=== PATIENT | female | born 1990 ===

== ENCOUNTER 2016-11-01 20:24 | Emergency (ER) | payer SELFPAY ==
[~2016-11-01] VITALS: Ht 162.6 cm; Wt 84.6 kg
[2016-11-01 20:28] VITALS: BP 106/77; PULSE 89; RESP 16; TEMP 97.9; O2SAT 99
--- NOTE | 2016-11-01 20:42 | PD ---
HPI Chief Complaint: ENT Complaint Time Seen by Provider: 20:30 Travel History International Travel<30 days: No Contact w/Intl Traveler<30days: No Traveled to known affect area: No History of Present Illness HPI 26-year-old female presents to the emergency room for evaluation of sore throat , headache, and congestion that started last night. Patient states her sore throat started yesterday morning and got better through the day but worsening and when she woke up this morning. Pain is 5/10. She has been taking ibuprofen for symptoms. She has associated mild headache and runny nose. Denies fever, chills, nausea, and vomiting. She is not on any medications. History Past Medical Histgory Medical History: Denies Significant Hx Tetanus Vaccination: > 5 Years LMP: NOW Past Surgical History Surgical History: No Previous Surgery Social History Alcohol Use: Yes (OCC) Tobacco Use: Yes (1/2) Allergies-Medications (Allergen,Severity, Reaction): Coded Allergies: No Known Allergies (Unverified , 11/01/16) Reported Meds & Prescriptions Reported Meds & Active Scripts Active No Active Prescriptions or Reported Medications Review of Systems Except as stated in HPI: all other systems reviewed are Neg Physical Exam Narrative GENERAL: Well-nourished, well-developed female in no acute distress. Afebrile. Ambulatory. SKIN: Focused skin assessment warm/dry. HEAD: Normocephalic. EYES: No scleral icterus. No injection or drainage. ENT: Mucosa pink and moist. Very mild erythema of the pharynx. No edema or exudates. No uvular edema. No uvular, palatal, or tonsillar deviation. Airway patent. Nasal turbinates appear normal without nasal blood, purulent drainage or septal hematoma. EARS: Bilateral pinnae and external canals appear within normal limits. Bilateral tympanic membranes without erythema, dullness or perforation. NECK: Supple, trachea midline. No JVD or lymphadenopathy. CARDIOVASCULAR: Regular rate and rhythm without murmurs, gallops, or rubs. RESPIRATORY: Breath sounds equal bilaterally. No accessory muscle use. No crackles, rales, wheezes, or rhonchi. Data Data Last Documented VS Vital Signs Date Time Temp Pulse Resp B/P Pulse Ox O2 Delivery O2 Flow Rate FiO2 11/01/16 20:32 11/01/16 20:28 97.9 89 16 99 Room Air [facility] Medical Screen Exam Complete: Yes Emergency Medical Condition: No Differential Diagnosis URI Narrative Course 26-year-old female presents to the emergency room for evaluation of sore throat , runny nose, and headache for the past day. No history of fever. Sore throat is mild. Patient is afebrile and well-appearing in the emergency room. Physical exam is unremarkable. Patient has very mild erythema of the pharynx. No exudates or edema. No evidence of bacterial infection. This is viral URI. Patient told to take [id number] medications for symptoms or return for worsening symptoms. She understands and agrees to plan. A medical screening exam was performed: At the time of evaluation the presenting medical condition was determined not to be of an emergent nature. The patient was given the option of receiving additional care, but declined. Patient was given options for additional community resources from which to obtain care. The Patient Has Been advised to seek medical attention for their presenting complaint. The patient has been advised to return to the ER at any time if an emergent condition develops. Primary Impression: Encounter for medical screening examination Scripts No Active Prescriptions or Reported Meds Disposition: 01 DISCHARGE HOME Condition: Stable Sobia Schreiber Nov 01, 2016 20:42
== END 2016-11-01 21:01 | disposition left against medical advice (07) ==
LOC: PHEFT 20:24
DX: R51 Headache (principal)
CPT/HCPCS: 99281